=== PATIENT | female | born 1950 | race Caucasian/White ===

== ENCOUNTER → 2016-04-30 | Outpatient (CLI) | payer MEDICARE, OTHER ==
[~2016-04-30] MED LIST: AMITRIPTYLINE 225 MG PO; BACTRIM DS 8001 TA1 PO; GLIPIZIDE XL5 M1 PO; HUMALOG100 U/ML SC; LORTAB 5/3251 TAB PO; METFORMIN HCL1000 MG PO; METFORMIN500 MG PO
--- NOTE | 2016-04-30 12:17 | RADIOLOGY REPORT PS360 ---
HIP RT 2-3V W/PELVIS IF PERFOR HISTORY: RT KNEE PAIN,HIP PAIN,ANKLE PAIN ORDERING PHYSICIAN: BECKI DALE PATIENT AGE: 65 years COMPARISON: None FINDINGS: There are mild osteoarthritic changes of the right hip with some decrease in joint space superiorly and osteosclerosis of the acetabular roof. No fracture or dislocation. No lytic or blastic change. IMPRESSION: Mild osteoarthritic change of the right hip
--- NOTE | 2016-04-30 12:19 | RADIOLOGY REPORT PS360 ---
KNEE-3 VIEWS-RT HISTORY: RT KNEE PAIN,HIP PAIN,ANKLE PAIN ORDERING PHYSICIAN: BECKI DALE PATIENT AGE: 65 years FINDINGS: No fracture or dislocation. No lytic or blastic change. Normal mineralization. There are mild tricompartmental osteoarthritic changes with decrease in the joint spaces, mild osteophyte formation, and minimal osteosclerosis. No other significant findings IMPRESSION: Mild tricompartmental osteoarthritic change which is slightly worse than when compared to 06/20/2014
--- NOTE | 2016-04-30 12:22 | RADIOLOGY REPORT PS360 ---
ANKLE-RT-3 VIEWS HISTORY: RT KNEE PAIN,HIP PAIN,ANKLE PAIN ORDERING PHYSICIAN: BECKI DALE PATIENT AGE: 65 years COMPARISON: None FINDINGS: No fracture or dislocation. No lytic or blastic change. There is normal mineralization.. The joint spaces are well-preserved. No significant degenerative/arthritic changes. No erosive changes evident. There is mild hypertrophy of the tip of the lateral malleolus which is of questionable clinical significance IMPRESSION: Negative, no acute finding
== END ==
LOC: RAD 09:30
DX: M25.551 Pain in right hip (principal); M25.561 Pain in right knee; M25.571 Pain in right ankle and joints of right foot